=== PATIENT | male | born 1980 | race African-American/Black ===

== ENCOUNTER 2019-06-15 12:00 | Emergency (ER) | payer BC ==
[~2019-06-15] VITALS: Ht 182.9 cm; Wt 87.5 kg
[2019-06-15 12:09] VITALS: Ht 182.9 cm; Wt 87.5 kg
[2019-06-15 13:52] LABS: AMPHETAMINE QUAL UR NONE DETECTED (See below)
[2019-06-15 13:57] VITALS: BP 160/90
== END 2019-06-15 13:57 | disposition home or self-care (01) ==
LOC: ED 12:00
DX: F41.0 Panic disorder [episodic paroxysmal anxiety] (principal)